=== PATIENT | male | born 2005 | race Two or more races ===

== ENCOUNTER 2025-03-03 07:21 | Emergency (ER) | payer MEDICAID, SELFPAY ==
[2025-03-03 07:37] VITALS: BP 157/105; BP 170/122; PULSE 98; RESP 19; TEMP 36.7; O2SAT 97; BMI 27.2
--- NOTE | 2025-03-03 07:38 | PD.EDRME ---
Rapid Medical Screening Exam RME Arrival date/time: 03/03/25 07:21 19-year-old male with a history of type 1 diabetes presents to the emergency room with a chief complaint of generalized weakness, fatigue, vomiting and elevated blood sugar reading x 2 days I have greeted and performed a focused initial assessment of this patient. A comprehensive ED assessment and evaluation of the patient, analysis of all test results, and completion of the medical decision making process will be conducted by additional ED providers. Chief Complaint: General Adult/Misc Complain Time Seen by Provider: 03/03/25 07:27 Vital signs reviewed by provider: Yes
[2025-03-03 08:14] LABS: Base Excess, Venous -8 (-3-3); O2 Saturation, Venous 81 % (96-97); PCO2, Venous 29 mmHg (36-56); PO2, Venous 41 mmHg (15-58); pH, Venous 7.35 (7.33-7.66)
--- NOTE | 2025-03-03 08:16 | XR_ITS ---
Examination: AP chest single view Technique one AP portable upright chest single view Exam date and time: March 03, 2025 0835 hours INDICATIONS: Coughing today. FINDINGS: Normal heart size. Lungs are clear. Osseous structures are intact IMPRESSION: No active disease
[2025-03-03 08:18] LABS: Beta Hydroxybutyrate 2.2 mmol/L (<0.6)
[2025-03-03 08:20] LABS: Basophils % (Auto) 0 % (0-2.5); Eosinophils % (Auto) 0 % (0-10); Hematocrit 45.3 % (41.0-53.0); Hemoglobin 15.7 g/dL (13.5-16.0); Immature Granulocytes % (Auto) 1 % (0-0); Immature Granulocytes Auto 0.05 Thou/mm3 (0.00-0.00); Lymphocytes # (Auto) 0.8 Thou/mm3 (1.0-4.8); Lymphocytes % (Auto) 8 % (10-50); Mean Corpuscular HGB Conc 34.7 g/dl (31.0-37.0); Mean Corpuscular Hemoglobin 32.6 pg (25.0-35.0); Mean Corpuscular Volume 94 fL (80-100); Monocytes # (Auto) 0.5 Thou/mm3 (0.0-0.8); Monocytes % (Auto) 5 % (0-12); Neutrophils # (Auto) 9.2 Thou/mm3 (1.8-7.7); Neutrophils % (Auto) 87 % (37-80); Nucleated Red Blood Cell % 0 /100 WBC (0); Platelet Count 286 Thou/mm3 (140-440); RDW Standard Deviation 53.4 fL (35.1-43.9); Red Blood Count 4.82 Miln/mm3 (4.50-5.90); White Blood Count 10.5 Thou/mm3 (4.5-11.0)
--- NOTE | 2025-03-03 08:26 | EDNOTE_ITS ---
Nausea/Vomit./Diarrhea-RME/HPI General Chief complaint: General Adult/Misc Complain Stated complaint: FEELS SHAKY, POSS. HYPERGLYCEMIA, DRANK LAST NIGHT Time Seen by Provider: 03/03/25 07:27 Arrival date/time: 03/03/25 07:21 Limitations: no limitations RME / HPI RME / HPI Narrative: 03/03/25 07:21 19-year-old male with a history of type 1 diabetes presents to the emergency room with a chief complaint of generalized weakness, fatigue, vomiting and elevated blood sugar reading x 2 days I have greeted and performed a focused initial assessment of this patient. A comprehensive ED assessment and evaluation of the patient, analysis of all test results, and completion of the medical decision making process will be conducted by additional ED providers. DR. FLANNERY MAIN ED EVALUATION: 19 year old male with past medical history significant for type 1 diabetes since age 4 presents to the Emergency Department accompanied by his father with complaints of nausea, vomiting, and generalized weakness. He states [place] and did not take his diabetes medications. His blood glucose has been high since yesterday. Patient admits to marijuana use. Related Data Allergies Allergy/AdvReac Type Severity Reaction Status Date / Time No Known Allergies Allergy Verified 03/03/25 07:27 Review of Systems Review of Systems Systems Reviewed: All systems reviewed, normal except as documented Narrative Review of Systems: GEN: No fever, no chills, no weight loss EYES: No discharge, no visual changes, no pain HEENT: No ear pain, no congestion, no sore throat PULM: No shortness of breath, no cough, no congestion CV: No chest pain, no dyspnea on exertion, no palpitations GI: + nausea, + vomiting, no diarrhea, no pain, no constipation : No frequency, no urgency and no dysuria MUSC/SKEL: No joint pain, no back pain SKIN: No rash PSYCH: No hallucinations, no depression HEME/LYMPH: No easy bleeding or bruising tendencies NEURO: generalized weakness, no headache Past Medical History Past Medical History ENDOCRINE: Positive Diabetes Mellitus Type 1 Social History SMOKING STATUS: Never smoker SUBSTANCE USE: marijuana ALCOHOL: Never ED Exam General Limitations: Present no limitations General appearance: Present alert and in no apparent distress Head Head exam: Present atraumatic, normocephalic and normal inspection Eye Eye exam: Present normal appearance, PERRL and EOMI ENT ENT exam: Present normal exam, normal oropharynx and mucous membranes dry Neck Neck exam: Present normal inspection, full ROM and trachea midline Chest Chest inspection: Present normal inspection and symmetric chest wall rise Respiratory Respiratory exam: Present normal lung sounds bilaterally Cardiovascular Cardiovascular exam: Present regular rate, normal rhythm and normal heart sounds Abdominal Exam Abdominal exam: Present soft and normal bowel sounds Extremities Exam Extremities exam: Present normal inspection and full ROM Back Exam Back exam: Present normal inspection and full ROM Neurological Exam Neurological exam: Present alert, oriented X3 and CN II-XII intact Psychiatric Psychiatric exam: Present normal affect and normal mood Skin Skin exam: Present warm, dry, intact and normal color Course Quality Measures none Orders Category Date Time Status Fingerstick [Bedside Blood Glucose] NOW Care 03/03/25 07:37 Completed Insert IV STAT Care 03/03/25 07:37 Completed CXRP [XR chest 1V portable] Stat Exams 03/03/25 08:16 Completed Alcohol, Blood Medical Stat Lab 03/03/25 07:55 Completed Beta Hydroxybutyrate Stat Lab 03/03/25 07:55 Completed CBC Stat Lab 03/03/25 07:55 Completed CMP [Comprehensive Metabolic Panel] Stat Lab 03/03/25 07:55 Completed Lipase Stat Lab 03/03/25 07:55 Completed UA [Urinalysis] Stat Lab 03/03/25 09:23 Completed Urine Culture Stat Lab 03/03/25 09:23 Received VBG [Venous Blood Gas] Stat Lab 03/03/25 07:55 Completed Famotidine Inj [Pepcid Inj] Med 03/03/25 08:25 Discontinued 20 mg IVP X1 ONE Insulin Regular Med 03/03/25 08:15 Discontinued 14 unit IV X1 ONE Ondansetron Inj [Zofran Inj] Med 03/03/25 08:25 Discontinued 4 mg IV X1 ONE Pantoprazole Inj [Protonix Inj] Med 03/03/25 08:25 Discontinued 40 mg IVP X1 ONE Sodium Chloride 0.9% 1000 ml [Ns] 1,000 ml Med 03/03/25 07:38 Discontinued IV 999 mls/hr Sodium Chloride 0.9% 1000 ml [Ns] 1,000 ml Med 03/03/25 08:25 Discontinued IV 999 mls/hr Vital Signs Vital signs: Vital Signs Temperature 98.1 F 03/03/25 07:37 Pulse Rate 98 03/03/25 07:37 Respiratory Rate 19 03/03/25 07:37 Blood Pressure 170/122 H 03/03/25 07:37 Pulse Oximetry (%) 97 03/03/25 07:37 Oxygen Delivery Method Room Air 03/03/25 07:37 Nausea/Vomiting/Diarrhea MDM Narrative MDM Narrative:: I, Kathy Villarreal, red scribing for and in the presence of Dr. Flannery. Patient data External records reviewed:: [facility] previous records (Reviewed last ED visit dated 02/21/24 discharged with the following: Hyperglycemia due to diabetes mellitus) Clinical information provided by:: patient Social determinants that could affect healthcare access:: substance use (marijuana use) Patient has the following chronic illnesses:: type 1 diabetes since age 4 How is presenting disease/condition affected by chronic disease/condition?: caused by Evaluation data The following diagnostics were reviewed and interpreted by me:: lab results and radiology exam(s) Lab and/or radiology exams considered but not ordered:: none Interpretation Summary: Beta 2.2 Bedside glucose 540 RADIOLOGY Procedure(s): XR chest 1V portable Accession Number(s): [id number] cc: Vel Flannery MD; Holger Gary MD; Fadi Puckett MD~ Examination: AP chest single view Technique one AP portable upright chest single view Exam date and time: March 03, 2025 0835 hours INDICATIONS: Coughing today. FINDINGS: Normal heart size. Lungs are clear. Osseous structures are intact IMPRESSION: No active disease Dictated By: Holger Gary MD Medications / Prescriptions Medications / Prescriptions considered but not ordered:: none Medication administrations:: Medication Administration History Discontinued Medications Famotidine (Famotidine Inj 10 Mg/Ml Vial 2 Ml) 20 mg IVP X1 ONE Stop: 03/03/25 08:26 Last Admin: 03/03/25 09:05 Dose: 20 mg Documented By: KATLYN Sodium Chloride (Ns) 1,000 mls @ 999 mls/hr IV .Q1H1M ONE Stop: 03/03/25 08:38 Last Infusion: 03/03/25 09:35 Dose: Infused Documented By: Admin: 03/03/25 08:31 Dose: 999 mls/hr Documented By: KATLYN Sodium Chloride (Ns) 1,000 mls @ 999 mls/hr IV .Q1H1M ONE Stop: 03/03/25 09:25 Last Infusion: 03/03/25 10:14 Dose: Infused Documented By: Admin: 03/03/25 09:06 Dose: 999 mls/hr Documented By: KATLYN Insulin Human Regular (Insulin Hum Regular 1 Unit/0.01 Ml (Per Unit)) 14 unit IV X1 ONE Stop: 03/03/25 08:16 Last Admin: 03/03/25 09:01 Dose: 14 unit Documented By: KATLYN Co-signed By: [facility] Ondansetron HCl (Ondansetron Inj 2 Mg/Ml Inj 2 Ml) 4 mg IV X1 ONE; Protocol Stop: 03/03/25 08:26 Last Admin: 03/03/25 09:05 Dose: 4 mg Documented By: KATLYN Pantoprazole Sodium (Pantoprazole Inj 40 Mg Vial) 40 mg IVP X1 ONE Stop: 03/03/25 08:26 Last Admin: 03/03/25 09:05 Dose: 40 mg Documented By: KATLYN see above Consultations Consultation(s) initiated? (list below): No Diagnosis Nausea Differential Diagnosis: drug-induced nausea and vomiting and other (DKA, hyperglycemia) Most likely diagnosis given after review of the tests above:: Acute hyperglycemia DKA Admission Indicated Admission indicated?: not indicated Explain why admission is indicated or not indicated:: Patient declined admission, at 1136 hours, he states he feels better and will restart his insulin pump at home. Admission Request Was there a request for admission?: No Disposition Plan Disposition Plan: Discharge Discharge Attestation Discharge Attestation: The patient and all family members were given an opportunity to ask questions and understood the discharge instructions. Discharge instructions specifically effects, indications for sooner follow up or return to the emergency department, and the expected course of current diagnosis. Patient condition: Stable Discharge Plan Plan Patient Disposition: HOME (Self Care) Discharge Disposition comment: Restart your insulin pump immediately when you go home. Patient condition on transfer: Stable Prescriptions/Referrals Referrals: Fadi Puckett MD [Primary Care Provider] - In 1 week Problem List Clinical Impression: Acute hyperglycemia, DKA (diabetic ketoacidosis) Patient/Caregiver Discharge Instructions Other Activity Instructions:: Return to the emergency room if you have any increased symptoms including nausea and vomiting Print Language: Senegalese Stand Alone Forms: Ana Award Info., Patient Portal Info Letter
[2025-03-03] MEDS: SODIUM CHLORIDE 0.9% 1000 ML 1,000 ML 999 ML IV ×2 (08:31→09:06)
[2025-03-03 08:59] LABS: Alanine Aminotransferase 56 U/L (10-49); Albumin, Serum 5.1 gm/dL (3.5-5.0); Albumin/Globulin Ratio 1.9 (1.2-2.2); Alcohol, Blood Medical < 10.0 mg/dL (0-10.0); Alkaline Phosphatase 123 U/L (46-116); Anion Gap 16 (7-16); Aspartate Amino Transferase 49 U/L (0-34); BUN/Creatinine Ratio 10 Ratio (12-20); Bilirubin,Total 0.9 mg/dL (0.3-1.2); Blood Urea Nitrogen 11 mg/dL (9-23); Calcium 9.1 mg/dL (8.3-10.6); Calcium (Corrected) 9.1 mg/dL (8.5-10.1); Carbon Dioxide 19.6 mMol/L (20.0-31.0); Chloride 98 mMol/L (98-107); Creatinine (Component) 1.1 mg/dL (0.6-1.3); Estimated Creatinine Clearance 110.6 mL/min (>60); Globulin 2.7 gm/dL (2.3-3.5); Lipase 23 U/L (12-53); Osmolality,Calculated 296 (275-295); Potassium 4.8 mMol/L (3.4-5.1); Sodium 134 mMol/L (136-145); Total Protein 7.8 gm/dL (5.7-8.2); eGFR > 60 See Note
[2025-03-03] MEDS: INSULIN HUM REGULAR 1 UNIT/0.01 ML (PER UNIT) 14 UNIT IV (09:01)
[2025-03-03] MEDS: FAMOTIDINE INJ 10 MG/ML VIAL 2 ML 20 MG IVP (09:05)
[2025-03-03] MEDS: PANTOPRAZOLE INJ 40 MG VIAL IVP (09:05)
[2025-03-03] MEDS: ONDANSETRON INJ 2 MG/ML INJ 2 ML 4 MG IV (09:05)
[2025-03-03 09:07] LABS: Glucose 629 mg/dL (74-106)
[2025-03-03 09:26] VITALS: BP 155/87; PULSE 98; RESP 18; TEMP 36.7; O2SAT 99
[2025-03-03 09:42] LABS: Collection Type, Urine Clean Catch; WBC,Urine 0 /hpf (0-5)
[2025-03-03 11:14] LABS: Bilirubin,Urine Negative (Negative); Blood,Urine Negative (Negative); Clarity,Urine Clear (Clear/Hazy); Color,Urine Colorless (Lt Yel-Yel); Glucose, Urine 4+ (Negative); Ketones,Urine 2+ (Negative); Leukocyte Esterase,Urine Negative (Negative); Nitrite,Urine Negative (Negative); PH,Urine 5.5 (5.0-7.0); Protein,Urine Negative (Neg - Trace); RBC,Urine 2 /hpf (0-3); Specific Gravity,Urine 1.029 (1.001-1.035); Squamous Epithelial Cell,Urine 1 /hpf (0-5); Urobilinogen,Urine Negative mg/dL (0.0-1.0)
[2025-03-03 12:17] VITALS: BP 144/85; PULSE 101; RESP 18; TEMP 36.6; O2SAT 99
== END 2025-03-03 12:19 | disposition home or self-care (01) ==
PROVIDERS: Nurse Practitioner Family; Emergency Provider Family Medicine; PCP Family Medicine
DX: E10.10 Type 1 diabetes mellitus with ketoacidosis without coma (principal); R05.9 Cough, unspecified; Z79.4 Long term (current) use of insulin
CPT/HCPCS: 36415; 71045; 80053; 80320; 81001; 82010; 82803; 83690; 85025; 87086; 96361; 96374; 96375; 99284; J1815; J2405; J2470; J3490; J7030; G0480